=== PATIENT | female | born 1965 | race American Indian/Alaskan Native ===

== ENCOUNTER 2016-12-12 12:02 | Emergency (ER) | payer BC ==
--- NOTE | 2016-12-12 15:00 | Emergency Department Report ---
ED Psych HPI - General Chief Complaint: Psych Stated Complaint: 1013/ AND COMBATIVE Time Seen by Provider: 12/12/16 13:12 Source: patient, family, police Mode of arrival: Ambulatory - History of Present Illness MD Complaint: suicidal ideation, feels depressed, altered mental status -: Gradual Associated Psychiatric Symptoms: depression, suicidal ideation, racing thoughts , auditory hallucinations, delusions History of same: Yes Quality: constant Improves With: none Worsens With: none Context: not taking psychiatric Associated Symptoms: confusion, insomnia. denies: headache, shortness of breath , nausea, vomiting, syncope Treatments Prior to Arrival: none - Related Data Allergies Allergy/AdvReac Type Severity Reaction Status Date / Time Penicillins AdvReac Rash Verified 12/12/16 12:38 ED Review of Systems ROS: Stated complaint: 1013/ AND COMBATIVE Other details as noted in HPI Comment: All other systems reviewed and negative ED Past Medical Hx - Past Medical History Previous Medical History?: Yes Hx Diabetes: Yes Hx Psychiatric Treatment: Yes (Depression, schizophrenia) - Surgical History Past Surgical History?: No - Social History Smoking Status: Never Smoker Substance Use Type: None ED Physical Exam - General Limitations: Other General appearance: alert - Head Head exam: Present: atraumatic, normocephalic - Eye Eye exam: Present: normal appearance - ENT ENT exam: Present: mucous membranes moist - Neck Neck exam: Present: normal inspection - Respiratory Respiratory exam: Present: normal lung sounds bilaterally. Absent: respiratory distress - Cardiovascular Cardiovascular Exam: Present: regular rate, normal rhythm. Absent: systolic murmur, diastolic murmur, rubs, gallop - GI/Abdominal GI/Abdominal exam: Present: soft, normal bowel sounds - Extremities Exam Extremities exam: Present: normal inspection - Back Exam Back exam: Present: normal inspection - Neurological Exam Neurological exam: Present: alert, oriented X3 - Psychiatric Psychiatric exam: Present: depressed, homicidal ideation, suicidal ideation - Skin Skin exam: Present: warm, dry, intact, normal color. Absent: rash ED Course Vital Signs 12/12/16 12/12/16 12/12/16 12:31 12:50 13:53 Temperature 97.9 F 97.9 F Pulse Rate 108 H 108 H Respiratory 16 16 16 Rate Blood Pressure 144/73 Blood Pressure 144/73 [Left] O2 Sat by Pulse 100 100 100 Oximetry ED Medical Decision Making - Medical Decision Making patient will need a 1013 form , hallucinations and confused , talking to herself , out of meds , psych social worker masters examined the patient and agree with plan will medically clear the patient before transferring to psych facility Critical care attestation.: If time is entered above; I have spent that time in minutes in the direct care of this critically ill patient, excluding procedure time. ED Disposition Clinical Impression: Psychosis Disposition: [id number]/TX-65 PSY HOSP/PSY UNIT Is pt being admited?: No Does the pt Need Aspirin: No Condition: Fair Referrals: PRIMARY CARE, [Primary Care Provider] - 3-5 Days
[2016-12-12 15:07] LABS: Anion Gap 27 mmol/L; BUN/Creatinine Ratio 31.25; Blood Urea Nitrogen 25 mg/dL (7-17); Calcium 9.9 mg/dL (8.4-10.2); Carbon Dioxide 21 mmol/L (22-30); Chloride 97.9 mmol/L (98-107); Glucose 124 mg/dL (65-100); Potassium 4.7 mmol/L (3.6-5.0); Sodium 141 mmol/L (137-145)
[2016-12-12 21:03] LABS: Basophils % (Auto) 1.2 % (0.0-1.8); Eosinophils % (Auto) 1.2 % (0.0-4.3); Hematocrit 40.4 % (30.3-42.9); Hemoglobin 13.2 gm/dl (10.1-14.3); Mean Corpuscular HGB Conc 33 % (30-34); Mean Corpuscular Hemoglobin 28 pg (28-32); Mean Corpuscular Volume 86 fl (79-97); Platelet Count 384 K/mm3 (140-440); Red Blood Count 4.69 M/mm3 (3.65-5.03); Red Cell Distribution Width 15.2 % (13.2-15.2); White Blood Count 7.6 K/mm3 (4.5-11.0)
[2016-12-12 21:27] LABS: Urine Drugs of Abuse Note Disclamer
[2016-12-12 21:48] LABS: Bilirubin,Urine NEG (Negative); Blood,Urine SM (Negative); Ketones,Urine TR mg/dL (Negative); Leukocyte Esterase,Urine NEG (Negative); Nitrite,Urine NEG (Negative); Protein,Urine <15 mg/dL mg/dL (Negative); Urobilinogen,Urine < 2.0 mg/dL (<2.0)
--- NOTE | 2016-12-13 16:51 | Consultation ---
History of Present Illness - Reason for Consult Consult date: 12/13/16 Reason for consult: psychiatric evaluation - Chief Complaint Chief complaint: would not speak 51 year old female seen in the ER for chief concern of psychosis. She was brought in to the hospital by law enforcement. The family called police. She has reportedly not slept for days and has been displaying bizarre and combative behavior. She has been off medications for for schizophrenia for 1 year and has not seen her psychiatrist in one year. Past medications are unknown. ETOH and UDS screen are negative. She was lying on the stretcher in the dark with her eyes closed smiling intermittently. She did not respond to questions. Staff report she is out of bed at times and is demanding of staff and responding to internal stimuli. Medications and Allergies Allergies Allergy/AdvReac Type Severity Reaction Status Date / Time Penicillins AdvReac Rash Verified 12/12/16 12:38 Past psychiatric history - Past Medical History Past Medical History: other (unknown) Past Surgical History: Other (unk) - past Psychiatric treatment and history Psych: Depression (per the record), Schizophrenia - Social History Social history: other (unk) Mental Status Exam - Vital signs Last Vital Signs Temp 98 F 12/12/16 19:00 Pulse 72 12/12/16 19:00 Resp 16 12/12/16 20:38 BP 124/70 12/12/16 19:00 Pulse Ox 100 12/12/16 20:38 - Exam Narrative exam: Unable to assess orientation, mood, thought content or process, memory. She responds to internal stimuli. The record indicates she has not slept in day Behavior observed and symptoms per the record are consistent with real/ psychosis Results Result Diagrams: 12/12/16 20:39 12/12/16 12:52 Abnormal lab results 12/12/16 12/13/16 Range/Units 20:39 02:38 Cecil % (Auto) 7.9 H (0.0-7.3) % POC Glucose 189 H (70-105) All other labs normal. Assessment and Plan Assessment and plan: Impression: Psychosis unspecified DD: schizoaffective disorder, schizophrenia, bipolar with psychosis Recommendation: Continue 1013 and Transfer to inpatient psychiatric facility Geodon 20mg po qpm for psychosis
[2016-12-13] MEDS: GEODON PO SCH (22:01)
--- NOTE | 2016-12-14 11:40 | Progress Note ---
Subjective - Reason for Consult Consult date: 12/14/16 Reason for consult: psychosis Mental Status Exam - Vital signs Last Vital Signs Temp 99.7 F H 12/13/16 19:00 Pulse 82 12/13/16 19:00 Resp 18 12/13/16 19:00 BP 139/71 12/13/16 19:00 Pulse Ox 97 12/13/16 19:00 Assessment and Plan On cognitive examination, patient remains fairly guarded and uncooperative. Patient was noted by nursing staff to be persistently disorganized and paranoid. General Appearance: casually dressed, no acute distress Sensorium/Consciousness: alert and responding to external stimuli; clear Orientation: person, place, time and situation Eye Contact: limited Attitude / Behavior: guarded Psychomotor & Musculoskeletal Activity: WNL Mood: Irritable Affect: Labile Speech / Language: fluent, with normal rate/rhythm/tone Thought Processes: Disorganized Thought Content: Paranoid Perception: Possibly responding to internal stimuli Insight: limited Judgement: limitied Capacity for ADLs: independent plan: Refer to inpatient psychiatric hospital Patient currently not willing to voluntarily take medications; therefore, none have been recommended/ordered for her
[2016-12-14] MEDS: GEODON PO SCH (22:13)
--- NOTE | 2016-12-15 13:14 | Progress Note ---
Subjective - Reason for Consult Consult date: 12/15/16 Reason for consult: psychosis Mental Status Exam - Vital signs Last Vital Signs Temp 97.9 F 12/14/16 22:00 Pulse 80 12/14/16 22:00 Resp 16 12/15/16 09:29 BP 145/74 12/14/16 22:00 Pulse Ox 99 12/15/16 09:29 Assessment and Plan On cognitive examination, patient remains fairly guarded and uncooperative. She refused to speak with me today. Patient continues to have nonsensical speech and have some perseverative paranoid thoughts. General Appearance: casually dressed, no acute distress Sensorium/Consciousness: alert and responding to external stimuli; clear Orientation: person, place, time and situation Eye Contact: limited Attitude / Behavior: guarded Psychomotor & Musculoskeletal Activity: WNL Mood: Irritable Affect: Labile Speech / Language: fluent, with normal rate/rhythm/tone Thought Processes: Disorganized Thought Content: Paranoid Perception: Possibly responding to internal stimuli Insight: limited Judgement: limitied Capacity for ADLs: independent plan: Refer to inpatient psychiatric hospital Patient currently not willing to voluntarily take medications; therefore, none have been recommended/ordered for her
[2016-12-15] MEDS: GEODON PO SCH (22:16)
--- NOTE | 2016-12-16 14:02 | Progress Note ---
Subjective - Reason for Consult Reason for consult: paranoid Mental Status Exam - Vital signs Last Vital Signs Temp 98.9 F 12/15/16 22:00 Pulse 94 H 12/16/16 08:38 Resp 20 12/16/16 08:38 BP 144/92 12/16/16 08:38 Pulse Ox 98 12/15/16 22:00 Assessment and Plan On cognitive examination, patient remains fairly guarded and uncooperative. She refused to speak with me today. Patient continues to have nonsensical speech and have some perseverative paranoid thoughts. General Appearance: casually dressed, no acute distress Sensorium/Consciousness: alert and responding to external stimuli; clear Orientation: person, place, time and situation Eye Contact: limited Attitude / Behavior: guarded Psychomotor & Musculoskeletal Activity: WNL Mood: Irritable Affect: Labile Speech / Language: fluent, with normal rate/rhythm/tone Thought Processes: Disorganized Thought Content: Paranoid Perception: Possibly responding to internal stimuli Insight: limited Judgement: limitied Capacity for ADLs: independent Plan: Refer to inpatient psychiatric hospital Patient currently not willing to voluntarily take medications She has been perscribed geodon, as she starts to take it consistently, we will increase the dose to achieve better symptom management
[2016-12-16] MEDS: GEODON PO SCH (22:16)
[2016-12-17 10:31] VITALS: BP 142/86
--- NOTE | 2016-12-17 12:23 | Progress Note ---
Subjective - Reason for Consult Reason for consult: evaluate for inpatient psych referral Mental Status Exam - Vital signs Last Vital Signs Temp 98.4 F 12/17/16 10:29 Pulse 88 12/17/16 10:29 Resp 18 12/17/16 10:29 BP 142/86 12/17/16 10:29 Pulse Ox 99 12/17/16 10:29 Assessment and Plan Remains guarded and hostile on approach. Patient is very paranoid and upset about the fact that she is giving me transfer to inpatient psychiatric facility. Once she was notified this, patient did not want to continue her conversation with me today. General Appearance: casually dressed, no acute distress Sensorium/Consciousness: alert and responding to external stimuli; clear Orientation: person, place, time and situation Eye Contact: limited Attitude / Behavior: guarded Psychomotor & Musculoskeletal Activity: WNL Mood: Irritable Affect: Labile Speech / Language: fluent, with normal rate/rhythm/tone Thought Processes: Disorganized Thought Content: Paranoid Perception: Possibly responding to internal stimuli Insight: limited Judgement: limitied Capacity for ADLs: independent Plan: Patient to be transferred to inpatient psychiatric facility today
== END 2016-12-17 11:12 ==
LOC: EEVIPCON 12:02 → ED 12:02
DX: F29 Unspecified psychosis not due to a substance or known physiological condition (principal); E11.9 Type 2 diabetes mellitus without complications; F32.9 Major depressive disorder, single episode, unspecified; F20.9 Schizophrenia, unspecified; Z88.0 Allergy status to penicillin
CPT/HCPCS: 36415; 80048; 80307; 81001; 82962; 84703; 85025; 99285; G0480; 80320

== ENCOUNTER 2017-10-05 13:29 | Emergency (ER) | payer SELFPAY ==
[2017-10-05 14:21] VITALS: BP 142/48
--- NOTE | 2017-10-05 16:39 | Emergency Department Report ---
ED Allergic Reaction HPI - General Chief complaint: Allergic Reaction Stated complaint: TONGUE SWELLING Time Seen by Provider: 10/05/17 16:32 Source: patient Mode of arrival: Ambulatory Limitations: No Limitations - History of Present Illness Initial Comments: This is a 52-year-old female nontoxic, well nourished in appearance, no acute signs of distress presents to the ED with c/o of tongue swelling x1 day. Patient stated she wake up with this and stated that symptoms currently has resolved. Patient denies known factor. Patient denies any other facial swelling , chest pain, shortness of breath, drooling, difficulty breathing, chest pain, headache, numbness, tingling. Patient states allergies to penicillin with past medical history of DM. MD Complaint: allergic reaction, facial swelling -: This morning Exposure: unknown Symptoms: facial swelling (tongue) Severity: mild Treatment Prior to Arrival: none Previous Allergy History: none - Related Data Previous Rx's Medication Instructions Recorded Last Taken Type Prednisone [predniSONE 10 mg 10 mg PO .TAPER #1 tab.ds.pk 10/05/17 Unknown Rx (6-Day Pack, 21 Tabs)] diphenhydrAMINE [Benadryl CAP] 25 mg PO Q6HR PRN #20 capsule 10/05/17 Unknown Rx Allergies Allergy/AdvReac Type Severity Reaction Status Date / Time Penicillins AdvReac Rash Verified 12/12/16 12:38 ED Review of Systems ROS: Stated complaint: TONGUE SWELLING Other details as noted in HPI Constitutional: denies: chills, fever Eyes: denies: eye pain, eye discharge, vision change ENT: denies: ear pain, throat pain Respiratory: denies: cough, shortness of breath, wheezing Cardiovascular: denies: chest pain, palpitations Endocrine: no symptoms reported Gastrointestinal: denies: abdominal pain, nausea, diarrhea Genitourinary: denies: urgency, dysuria, discharge Musculoskeletal: denies: back pain, joint swelling, arthralgia Skin: denies: rash, lesions Neurological: denies: headache, weakness, paresthesias Psychiatric: denies: anxiety, depression Hematological/Lymphatic: denies: easy bleeding, easy bruising ED Past Medical Hx - Past Medical History Previous Medical History?: Yes Hx Diabetes: Yes Hx Psychiatric Treatment: Yes (Depression, schizophrenia) - Surgical History Past Surgical History?: No - Social History Smoking Status: Never Smoker Substance Use Type: None - Medications Home Medications: Home Medications Medication Instructions Recorded Confirmed Last Taken Type Prednisone [predniSONE 10 mg 10 mg PO .TAPER #1 tab.ds.pk 10/05/17 Unknown Rx (6-Day Pack, 21 Tabs)] diphenhydrAMINE [Benadryl CAP] 25 mg PO Q6HR PRN #20 capsule 10/05/17 Unknown Rx ED Physical Exam - General Limitations: No Limitations General appearance: alert, in no apparent distress - Head Head exam: Present: atraumatic, normocephalic - Eye Eye exam: Present: normal appearance Pupils: Present: normal accommodation - ENT ENT exam: Present: normal exam, normal orophraynx, mucous membranes moist, TM's normal bilaterally, normal external ear exam, other (No tongue swelling or facial swelling noted. Uvula midline. ) - Neck Neck exam: Present: normal inspection, full ROM. Absent: tenderness, meningismus - Respiratory Respiratory exam: Present: normal lung sounds bilaterally. Absent: respiratory distress, rales, rhonchi, stridor - Cardiovascular Cardiovascular Exam: Present: regular rate, normal rhythm, normal heart sounds. Absent: bradycardia, tachycardia, irregular rhythm, systolic murmur, diastolic murmur, rubs, gallop - GI/Abdominal GI/Abdominal exam: Present: soft, normal bowel sounds - Rectal Rectal exam: Present: deferred - Extremities Exam Extremities exam: Present: normal inspection, full ROM, normal capillary refill - Back Exam Back exam: Present: normal inspection, full ROM - Neurological Exam Neurological exam: Present: alert, oriented X3, normal gait - Psychiatric Psychiatric exam: Present: normal affect, normal mood - Skin Skin exam: Present: warm, dry, intact, normal color. Absent: rash ED Course Vital Signs 10/05/17 14:12 Temperature 98.6 F Pulse Rate 78 Respiratory 18 Rate Blood Pressure 142/48 O2 Sat by Pulse 98 Oximetry - Reevaluation(s) Reevaluation #1: 10/05/17 16:37 Patient is speaking in full sentences with no signs of distress noted. ED Medical Decision Making - Medical Decision Making This is a 52-year-old female that presents with allergies reaction. Patient is stable and was examined by me. Currently in the ED there is no angioedema present. No tongue swelling noted. No rash. No Hives. Patient is speaking in full sentences with no signs of distress noted. Normal vitals. Patient is discharged with bandryl and prednisone. Patient was referred to Follow-up with a primary care doctor in 3-5 days or if symptoms worsen and continue return to emergency room as soon as possible. At time of discharge, the patient does not seem toxic or ill in appearance. No acute signs of distress noted. Patient agrees to discharge treatment plan of care. No further questions noted by the patient. Critical care attestation.: If time is entered above; I have spent that time in minutes in the direct care of this critically ill patient, excluding procedure time. ED Disposition Clinical Impression: Allergic reaction Qualifiers: Encounter type: initial encounter Qualified Code(s): T78.40XA - Allergy, unspecified, initial encounter Disposition: TO HOME OR SELFCARE Is pt being admited?: No Does the pt Need Aspirin: No Condition: Stable Instructions: Allergies (ED), Prednisone (By mouth), Diphenhydramine (By mouth) Additional Instructions: Follow-up with a primary care doctor in 3-5 days or if symptoms worsen and continue return to emergency room as soon as possible. Prescriptions: diphenhydrAMINE [Benadryl CAP] 25 mg PO Q6HR PRN #20 capsule PRN Reason: Itching Prednisone [predniSONE 10 mg (6-Day Pack, 21 Tabs)] 10 mg PO .TAPER #1 tab.ds.pk Referrals: PRIMARY CARE, [Primary Care Provider] - 3-5 Days ROSS SUTTON MD [Staff Physician] - 3-[address] [facility] [Outside] - 3-5 Days [facility] [Outside] - 3-5 Days Forms: Work/School Release Form(ED)
== END 2017-10-05 16:52 | disposition home or self-care (01) ==
LOC: ED 13:29
DX: T78.40XA Allergy, unspecified, initial encounter (principal); E11.9 Type 2 diabetes mellitus without complications; Z88.0 Allergy status to penicillin
CPT/HCPCS: 99282